=== PATIENT | male | born 1995 | race Caucasian/White ===

== ENCOUNTER 2018-08-10 10:07 | Emergency (ER) | payer OTHER ==
[2018-08-10 10:08] VITALS: BP 180/80
== END 2018-08-10 11:20 | disposition home or self-care (01) ==
LOC: ED 10:07
DX: S61.002A Unspecified open wound of left thumb without damage to nail, initial encounter (principal); W26.0XXA Contact with knife, initial encounter; Y93.89 Activity, other specified; Y92.89 Other specified places as the place of occurrence of the external cause; Y99.8 Other external cause status